=== PATIENT | female | born 1970 | race Caucasian/White ===

== ENCOUNTER → 2016-03-10 16:37 | Outpatient (CLI) | payer OTHER ==
[2016-03-10 17:32] LABS: CKMB 0.6 U/L (0.0-3.6); CREATINE KINASE 120 UL (21-215)
[2016-03-10 17:33] LABS: TROPONIN-I < 0.017 ng/mL (0.000-0.060)
== END | disposition home or self-care (01) ==
LOC: D.LAB 16:37
PROVIDERS: Nurse Practitioner Family
DX: R07.9 Chest pain, unspecified (principal)

== ENCOUNTER → 2016-08-01 08:11 | Outpatient (CLI) | payer OTHER | END | disposition home or self-care (01) | LOC: D.LAB 08:00 | DX: R42 Dizziness and giddiness (principal); R73.9 Hyperglycemia, unspecified ==

== ENCOUNTER 2018-03-01 08:00 | Outpatient (CLI) | payer OTHER | END 2018-03-01 09:00 | disposition home or self-care (01) | LOC: D.MAMMO 08:00 | DX: Z12.31 Encounter for screening mammogram for malignant neoplasm of breast (principal) ==

== ENCOUNTER → 2019-09-02 14:42 | Outpatient (CLI) | payer OTHER | END | disposition home or self-care (01) | LOC: D.MAMMO 14:42 | PROVIDERS: ATTEND Nurse Practitioner Family | DX: Z12.31 Encounter for screening mammogram for malignant neoplasm of breast (principal) ==